=== PATIENT | female | born 1940 | race Caucasian/White ===

== ENCOUNTER 2017-06-07 08:05 | Day surgery (SDC) | payer OTHER, MEDICARE ==
[2017-06-07 08:54] VITALS: BMI 29.9
[2017-06-07] MEDS ORDERED: BACITRACIN 15 GM TUBE TOPICAL OINTMENT ONE (09:48)
[2017-06-07] MEDS ORDERED: LIDOCAINE HCL/EPINEPHRINE/PF 20 ML VIAL ONE ×2 (09:48→09:49)
[2017-06-07] MEDS ORDERED: MIDAZOLAM HCL 2 MG/2 ML SINGLE DOSE VIAL ONE (10:08)
[2017-06-07] MEDS ORDERED: LIDOCAINE 1%/EPI 1:100000 (20 ML MULTI DOSE VIAL) ONE (10:12)
[2017-06-07] MEDS ORDERED: PROPOFOL 20 ML ONE (10:14)
[2017-06-07] MEDS ORDERED: SUCCINYLCHOLINE CHLORIDE 200 MG/10 ML VIAL ONE (10:14)
[2017-06-07] MEDS ORDERED: ONDANSETRON 4 MG/2 ML VIAL IVPB PRN (10:18)
[2017-06-07] MEDS ORDERED: oxyCODONE HCL 5 MG TABLET PO PRN ×2 (10:18)
[2017-06-07] MEDS ORDERED: LIDOCAINE HCL 2% 100 MG/5 ML DISP.SYRIN ONE (10:20)
[2017-06-07] MEDS ORDERED: ceFAZolin SODIUM 1 GM VIAL ONE (10:30)
[2017-06-07] MEDS ORDERED: LACTATED RINGERS SOLUTION 1,000 ML IV SCH (10:30)
[2017-06-07] MEDS ORDERED: DEXAMETHASONE SOD PHOSPHATE 4 MG/1 ML VIAL ONE (10:32)
[2017-06-07] MEDS ORDERED: PHENYLEPHRINE HCL 10 MG/1 ML SINGLE DOSE VIAL ONE (10:42)
[2017-06-07] MEDS ORDERED: LIDOCAINE 1%/EPI 1:100000 (50 ML MULTI DOSE VIAL) INF ONE ×2 (10:42→10:58)
[2017-06-07] MEDS ORDERED: NITROGLYCERIN 2% OINTMENT - 1GM PACKET TD ONE ×3 (11:32→12:29)
[2017-06-07] MEDS ORDERED: ONDANSETRON 4 MG/2 ML VIAL IVPUSH ONE (12:10)
--- NOTE | 2017-06-07 12:20 | OP ---
DATE OF OPERATION: 06/07/2017 PROCEDURE: Division and inset of forehead flap on nasal reconstruction. PREOPERATIVE DIAGNOSIS: Intermediate stage of forehead flap nasal reconstruction status post Mohs excision of basal cell carcinoma on nose. ATTENDING SURGEON: Sherman Paez MD ANESTHESIA: General endotracheal anesthesia. DESCRIPTION OF PROCEDURE: The patient is seen in the holding area. Risks, benefits, and alternatives of the procedure are understood and agreed to procedure. The patient was brought to the operating room and placed in a supine position. A g of Ancef was given preoperatively. Sequential compression stockings and ROMÁN hose were applied. She is positioned carefully by surgical and anesthesia team. She was prepped and draped in standard surgical fashion. A time-out is called. The procedure, site, side are verified. A total of 7 mL of 1% lidocaine with 1:100,000 epinephrine is injected into the local surrounding operative tissues. At this point, the flap is divided 1.5 cm from its superior base where it is seen to be bleeding healthfully from its distal inset end. The proximal base of the flap is then defatted, unfurled, and the defect from where the flap originated is freshened, prepared for re-inset of the base of the flap. After hemostasis is achieved, the triangular base of the flap is re-inset into the forehead. A series of first interrupted, buried 5-0 Vicryl suture within the frontalis muscle reapproximated frontalis muscle. The skin is then approximated with a running 5-0 nylon suture with several 6-0 nylon interrupted elements to even the closure. The distal inset end of the flap is then assessed. The frontalis muscle element of this flap is removed. The flap itself is unfurled. After removal of the frontalis muscle, the flap is able to be assessed as healthy, pink, and viable. The decision was made to remove the remainder of the dorsal subunit on the nikolai skin of the nose to inset for an entire full subunit reconstruction. Once this was completed, the flap is trimmed to conform to the defect and is then inset with a running 6-0 nylon suture. The wound had been copiously irrigated. Hemostasis had been perfectly achieved. The flap remains pink and viable throughout the procedure. As a cautionary measure, nitroglycerin paste is applied to the extent of the nasal reconstruction flap. The remainder of the reconstruction is dressed with bacitracin, Xeroform, 4 x 4 gauze noncompressive. The patient is awoken from anesthesia having tolerated procedure well and transferred to recovery without complication. Griselda [id number]
[2017-06-07] MEDS ORDERED: PROMETHAZINE HCL 25 MG/1 ML VIAL IVPUSH ONE (14:00)
[2017-06-07 15:26] VITALS: BP 129/68; PULSE 85; TEMP 97.8
== END 2017-06-07 15:05 | disposition home or self-care (01) ==
LOC: FASU 08:05
PROVIDERS: ATTEND Plastic Surgery
PROC: 0HX1XZZ Transfer Face Skin, External Approach (ICD-10-PCS; principal; 2017-06-07 10:17)
DX: C44.311 Basal cell carcinoma of skin of nose (principal)
CPT/HCPCS: 94760